=== PATIENT | male | born 1955 | race Caucasian/White ===

== ENCOUNTER 2017-01-14 01:47 | Inpatient (IN) | payer OTHER ==
[2017-01-14 02:40] LABS: Basophils # (A) 0.1 k/uL (0-0.2); Basophils % (A) 1 %; CH 30.2; CHCM 32.1; Eosinophils # (A) 0.4 k/uL (0-0.7); Eosinophils % (A) 4 %; HCT 44.4 % (39.0-53.0); HDW 2.13; HGB 14.1 gm/dL (13.0-17.5); Luc # (Auto) 0.25; Luc % (Auto) 3; Lymphocytes # (A) 1.6 k/uL (1.0-4.8); Lymphocytes % (A) 18 %; MCH 30.1 pg (25.0-35.0); MCHC 31.8 g/dL (31.0-37.0); MCV 94.6 fL (80.0-100.0); Mean Platelet Volume 7.9; Monocytes # (A) 0.6 k/uL (0-1.0); Monocytes % (A) 7 %; Neutrophils # (A) 6.1 k/uL (1.3-7.7); Neutrophils % (A) 68 %; RDW 14.7 % (11.5-15.5); WBC 8.9 k/uL (3.8-10.6); WBC (Perox) 7.98
[2017-01-14 03:01] LABS: Calcium 9.7 mg/dL (8.4-10.2); Potassium 4.8 mmol/L (3.5-5.1); Total Bilirubin 0.5 mg/dL (0.2-1.3); Total Protein 7.6 g/dL (6.3-8.2)
[2017-01-14 03:12] LABS: INR 1.1 (<1.1); Partial Thromboplastin Time 25.6 sec (22.0-30.0); Prothrombin Time 11.2 sec (9.0-12.0)
--- NOTE | 2017-01-14 03:29 | ED ---
Altered Mental Status HPI - General Chief Complaint: Altered Mental Status Stated Complaint: Altered Mental Status Time Seen by Provider: 01/14/17 01:59 Source: patient Mode of arrival: EMS Limitations: no limitations - History of Present Illness Initial Comments: This patient is a 61-year-old man brought in to have an evaluation after he seemed somewhat disoriented. The patient had reportedly locked himself out of his vehicle tonight. He states that he had tried to go to the bank, states she was going to buy something similar to bit coins. The patient seems to believe that he went there around 1 in the afternoon when he was really around 1 AM. He stated that he did this because it seemed somewhat was stealing his money from him. He patient is denying any physical complaints. MD Complaint: confusion -: unknown Severity: moderate Associated Symptoms: denies other symptoms - Related Data Home Medications Medication Instructions Recorded Confirmed Acetaminophen Tab [Tylenol] 1,000 mg PO Q6HR PRN 02/23/15 01/14/17 Multivitamin [Men's Multi-Vitamin] 1 each PO DAILY 02/23/15 01/14/17 Previous Rx's Medication Instructions Recorded Aspirin 81 mg PO DAILY chew 02/27/15 INSULIN LISPRO (humaLOG) [humaLOG 6 unit SQ AC-TID #1 vial 02/27/15 (formulary)] Insulin Glargine [Lantus] 28 unit SQ HS #1 vial 02/27/15 Rivaroxaban [Xarelto] 15 mg PO BID-W/MEALS tab 02/27/15 Allergies Allergy/AdvReac Type Severity Reaction Status Date / Time No Known Allergies Allergy Verified 01/14/17 02:10 Review of Systems ROS Statement: Those systems with pertinent positive or pertinent negative responses have been documented in the HPI. ROS Other: All systems not noted in ROS Statement are negative. Constitutional: Denies: fever, chills Eyes: Denies: vision change Respiratory: Denies: cough, dyspnea Cardiovascular: Denies: chest pain, palpitations, dyspnea on exertion Gastrointestinal: Denies: abdominal pain, vomiting, diarrhea Genitourinary: Denies: dysuria, hematuria Musculoskeletal: Denies: back pain Skin: Denies: rash Neurological: Reports: confusion. Denies: headache, weakness, numbness Psychiatric: Denies: auditory hallucinations, visual hallucinations, homicidal thoughts, suicidal thoughts Past Medical History Past Medical History: CVA/TIA, Diabetes Mellitus Additional Past Medical History / Comment(s): pt states possible stroke/tia in september 2013 History of Any Multi-Drug Resistant Organisms: None Reported Past Surgical History: Orthopedic Surgery Additional Past Surgical History / Comment(s): RT KNEE TORN LIGAMENT REPAIR Past Anesthesia/Blood Transfusion Reactions: No Reported Reaction Past Psychological History: No Psychological Hx Reported Smoking Status: Former smoker Past Alcohol Use History: Rare Past Drug Use History: None Reported - Past Family History Father Family Medical History: Unable to Obtain Mother Family Medical History: Unable to Obtain General Exam Limitations: no limitations General appearance: alert, in no apparent distress Head exam: Present: atraumatic, normocephalic Eye exam: Present: normal appearance. Absent: scleral icterus, conjunctival injection Respiratory exam: Present: normal lung sounds bilaterally. Absent: respiratory distress, wheezes, rales, rhonchi, stridor Cardiovascular Exam: Present: regular rate, normal rhythm, normal heart sounds. Absent: systolic murmur, diastolic murmur, rubs, gallop GI/Abdominal exam: Present: soft. Absent: distended, tenderness, guarding, rebound, mass Extremities exam: Present: normal inspection, normal capillary refill. Absent: pedal edema, calf tenderness Back exam: Present: normal inspection. Absent: CVA tenderness (R), CVA tenderness (L) Neurological exam: Present: alert, CN II-XII intact. Absent: oriented X3 ( Patient is disoriented to date), motor sensory deficit Psychiatric exam: Present: normal mood. Absent: agitated, homicidal ideation, suicidal ideation Skin exam: Present: warm, dry, intact, normal color. Absent: rash Course Vital Signs 01/14/17 01/14/17 01/14/17 01:55 02:55 03:55 Temperature 96.9 F L Pulse Rate 77 66 64 Respiratory 16 16 20 Rate Blood Pressure 124/84 111/73 114/73 O2 Sat by Pulse 97 97 97 Oximetry 01/14/17 01/14/17 04:55 05:45 Temperature Pulse Rate 60 59 L Respiratory 16 18 Rate Blood Pressure 121/74 111/68 O2 Sat by Pulse 96 99 Oximetry Medical Decision Making - Medical Decision Making Patient's 61-year-old man who does seem somewhat disoriented. He is found to have a degree of renal failure, with the last lab tests being approximately 2 years ago but normal then. He also appears to be having some possible dementia versus delirium. Case discussed with Dr. Cates who is covering for Dr. Davis and will admit. Patient to have nephrology consultation as well as psychiatry. - Lab Data Result diagrams: 01/14/17 01:06 01/14/17 01:06 Lab Results 01/14/17 01/14/17 01/14/17 Range/Units 01:06 01:06 01:06 WBC 8.9 (3.8-10.6) k/uL RBC 4.70 (4.30-5.90) m/uL Hgb 14.1 (13.0-17.5) gm/dL Hct 44.4 (39.0-53.0) % MCV 94.6 (80.0-100.0) fL MCH 30.1 (25.0-35.0) pg MCHC 31.8 (31.0-37.0) g/dL RDW 14.7 (11.5-15.5) % Plt Count 224 (150-450) k/uL Neutrophils % 68 % Lymphocytes % 18 % Monocytes % 7 % Eosinophils % 4 % Basophils % 1 % Neutrophils # 6.1 (1.3-7.7) k/uL Lymphocytes # 1.6 (1.0-4.8) k/uL Monocytes # 0.6 (0-1.0) k/uL Eosinophils # 0.4 (0-0.7) k/uL Basophils # 0.1 (0-0.2) k/uL PT 11.2 (9.0-12.0) sec INR 1.1 (<1.1) APTT 25.6 (22.0-30.0) sec Sodium 144 (137-145) mmol/L Potassium 4.8 (3.5-5.1) mmol/L Chloride 107 (98-107) mmol/L Carbon Dioxide 19 L (22-30) mmol/L Anion Gap 18 mmol/L BUN 48 H (9-20) mg/dL Creatinine 3.00 H (0.66-1.25) mg/dL Est GFR (MDRD) Af Amer 26 (>60 ml/min/1.73 sqM) Est GFR (MDRD) Non-Af 21 (>60 ml/min/1.73 sqM) Glucose 103 H (74-99) mg/dL Plasma Lactic Acid Brandan (0.7-2.0) mmol/L Calcium 9.7 (8.4-10.2) mg/dL Total Bilirubin 0.5 (0.2-1.3) mg/dL AST 22 (17-59) U/L ALT 25 (21-72) U/L Alkaline Phosphatase 89 (38-126) U/L Ammonia (<30) umol/L Troponin I (0.000-0.034) ng/mL Total Protein 7.6 (6.3-8.2) g/dL Albumin 4.6 (3.5-5.0) g/dL 01/14/17 01/14/17 Range/Units 01:06 01:06 WBC (3.8-10.6) k/uL RBC (4.30-5.90) m/uL Hgb (13.0-17.5) gm/dL Hct (39.0-53.0) % MCV (80.0-100.0) fL MCH (25.0-35.0) pg MCHC (31.0-37.0) g/dL RDW (11.5-15.5) % Plt Count (150-450) k/uL Neutrophils % % Lymphocytes % % Monocytes % % Eosinophils % % Basophils % % Neutrophils # (1.3-7.7) k/uL Lymphocytes # (1.0-4.8) k/uL Monocytes # (0-1.0) k/uL Eosinophils # (0-0.7) k/uL Basophils # (0-0.2) k/uL PT (9.0-12.0) sec INR (<1.1) APTT (22.0-30.0) sec Sodium (137-145) mmol/L Potassium (3.5-5.1) mmol/L Chloride (98-107) mmol/L Carbon Dioxide (22-30) mmol/L Anion Gap mmol/L BUN (9-20) mg/dL Creatinine (0.66-1.25) mg/dL Est GFR (MDRD) Af Amer (>60 ml/min/1.73 sqM) Est GFR (MDRD) Non-Af (>60 ml/min/1.73 sqM) Glucose (74-99) mg/dL Plasma Lactic Acid Brandan 1.4 (0.7-2.0) mmol/L Calcium (8.4-10.2) mg/dL Total Bilirubin (0.2-1.3) mg/dL AST (17-59) U/L ALT (21-72) U/L Alkaline Phosphatase (38-126) U/L Ammonia 17 (<30) umol/L Troponin I <0.012 (0.000-0.034) ng/mL Total Protein (6.3-8.2) g/dL Albumin (3.5-5.0) g/dL - EKG Data -: EKG Interpreted by Oh EKG shows normal: sinus rhythm, axis (Normal), intervals (Normal), QRS complexes (Normal), ST-T waves (Normal) Rate: normal (Rate 74 bpm) Interpretation: normal EKG Disposition Clinical Impression: Acute renal failure, Altered mental status Disposition: ADMITTED IP TO THIS HOSP Condition: Poor Referrals: Veto Davis MD [Primary Care Provider] - 1-2 days
--- NOTE | 2017-01-14 03:47 | XR ---
EXAM: XR Chest, 1 View CLINICAL HISTORY: Reason: altered mental status TECHNIQUE: Frontal view of the chest. COMPARISON: Chest radiography 02/23/15 FINDINGS: Lungs: Unremarkable. No consolidation. Pleural space: Unremarkable. No pneumothorax. Heart: Unremarkable. No cardiomegaly. Mediastinum: Unremarkable. Bones/joints: Unremarkable. IMPRESSION: Normal chest x-ray.
--- NOTE | 2017-01-14 03:53 | CT ---
EXAM: CT Head Without Intravenous Contrast CLINICAL HISTORY: Reason: altered mental status TECHNIQUE: Axial computed tomography images of the head/brain without intravenous contrast. Coronal and sagittal reformats submitted. CTDI is 60.30 mGy and DLP is 1253.30 mGy-cm. This CT exam was performed using one or more of the following dose reduction techniques: automated exposure control, adjustment of the mA and/or kV according to patient size, and/or use of iterative reconstruction technique. COMPARISON: No relevant prior studies available. FINDINGS: Brain: Diffuse parenchymal atrophy. No hemorrhage. No significant white matter disease. No edema. Ventricles: No midline shift or ventriculomegaly. Bones/joints: Unremarkable. No acute fracture. Soft tissues: Unremarkable. Sinuses: Unremarkable as visualized. No acute sinusitis. Mastoid air cells: Unremarkable as visualized. No mastoid effusion. IMPRESSION: No acute findings.
[2017-01-14] MEDS ORDERED: SODIUM CHLORIDE 0.9% 1,000 ML IV ONE (05:44)
[2017-01-14] MEDS ORDERED: NALOXONE 0.4 MG/ML 1 ML VIAL IV PRN (05:59)
[2017-01-14] MEDS ORDERED: ACETAMINOPHEN TAB 325 MG TAB PO PRN (05:59)
[2017-01-14] MEDS: SODIUM CHLORIDE 0.9% 1,000 ML IV SCH ×2 (06:15→18:07)
[2017-01-14 07:19] LABS: Glucose,Whole Blood 127 mg/dL (75-99)
[2017-01-14] MEDS: INSULIN LISPRO (humaLOG) 300 UNIT/3 ML VIAL SQ SCH ×4 (07:40→21:39)
[2017-01-14 09:30] VITALS: BMI 26.7
[2017-01-14] MEDS: RIVAROXABAN 15 MG TAB PO SCH ×2 (09:39→18:07)
[2017-01-14] MEDS: ASPIRIN 81 MG CHEW PO SCH (09:39)
--- NOTE | 2017-01-14 10:28 | CONS ---
DATE OF CONSULTATION: 01/14/2017 REASON FOR CONSULTATION: Renal failure. HISTORY OF PRESENT ILLNESS: Patient is a 61-year-old male who was admitted to the hospital and he was brought in confused outside a bank parking lot. Patient is not clear about what happened. He thought he was trying to get money. He was reportedly locked out of his vehicle. He thought it was 1 p.m., but it was actually a.m. when the plant worker brought him. Patient denies any prior history of kidney diseases. His serum creatinine on admission was 3.0 mg/dL. Previous creatinine on 02/27/2015 was 1.0 mg/dL. Patient denied use of any nonsteroidal anti-inflammatory agents prior to admission. His blood pressure has been marginal. With systolic around 106 to 111 mmHg. He is currently maintained on IV fluids. Patient is voiding well. PAST MEDICAL HISTORY: Significant for diabetes, previous history of CVA/TIA. PAST SURGICAL HISTORY: Knee surgery on the right knee for torn ligament. SOCIAL HISTORY: The patient is an ex-smoker. No history of drug abuse or alcohol abuse. Medications at home included insulin, Xarelto. ALLERGIES: None. REVIEW OF SYSTEMS: As per HPI. Other systems negative. On examination, the patient is comfortable, awake. He is not in any acute distress. He appears alert, oriented x3. Blood pressure is 115/68, heart rate 54 per minute. He is afebrile. EXAMINATION OF THE HEART: S1 and S2. EXAMINATION OF THE LUNGS: Bilateral breath sounds are heard. Abdomen is soft, nontender. Examination of lower extremities shows chronic skin changes with chronic lesions noted. Discoloration noted bilaterally, areas of dry skin and possibly chronic dermatitis noted bilaterally. MANAGER SPORTS exam is grossly intact. Labs show sodium 144, potassium 4.8, BUN 48, serum creatinine 3.0. Hemoglobin 14.1 g/dL. ASSESSMENT: 1. Acute kidney injury, possibly prerenal. Continue IV fluids. Check urinalysis. Repeat labs in a.m. Avoid nephrotoxic agents. 2. Diabetes. Blood sugars not significantly elevated. It was 103. Patient is maintained on insulin. 3. Altered mentation, etiology unclear. Possible cerebrovascular accident. The CT scan was negative. Patient was not hypoglycemic at the time of admission. 4. Rule out chronic kidney disease. PLAN: Continue IV fluids. Check urinalysis. Check ultrasound of the kidneys. Repeat labs in the a.m. Recommend to discontinue Xarelto for now. I am not sure why the patient is on it.
[2017-01-14 10:54] LABS: Appearance,Urine Clear (Clear); Bilirubin,Urine Negative (Negative); Glucose,Urine (UA) Negative (Negative); Ketones,Urine Negative (Negative); Leukocyte Esterase,Urine Negative (Negative); Nitrite,Urine Negative (Negative); Protein,Urine Trace (Negative); Specific Gravity,Urine 1.009 (1.001-1.035); UA Billing (MACRO vs. MICRO) CHEM; Urobilinogen,Urine <2.0 mg/dL (<2.0)
--- NOTE | 2017-01-14 12:19 | US ---
EXAMINATION TYPE: US kidneys/renal and bladder DATE OF EXAM: 01/14/2017 COMPARISON: NONE CLINICAL HISTORY: renal failure; diabetic EXAM MEASUREMENTS: Right Kidney: 13.5 x 5.8 x 5.7 cm Left Kidney: 12.9 x 5.3 x 5.6 cm Post Void Residual Volume: not assessed on inpatient Right Kidney: No hydronephrosis or masses seen Left Kidney: mild hydronephrosis Bladder: wnl Bilateral Jets seen: No, only left ureteral jet was seen after 3 minute observation IMPRESSION: There appears to be mild left hydronephrosis with no definite renal calculus.
[2017-01-14 12:35] LABS: Glucose,Whole Blood 82 mg/dL (75-99)
[2017-01-14] MEDS: MULTIVITAMINS, THERA 1 EACH TAB PO SCH (12:44)
--- NOTE | 2017-01-14 16:58 | HP ---
DATE OF ADMISSION: I am covering for Dr. Veto Davis. Jaron Hardwick is a 61-year-old male who was brought in by railroad car letterer department as he was found near his car and was somewhat confused. He had locked himself out of his car and subsequently was brought into the ED. His past medical history is positive for diabetes mellitus, previous CVA or TIA in September 2013, history of right knee torn ligament. FAMILY HISTORY: Both his parents. apparently of natural causes. SOCIAL HISTORY: Patient used to drink alcohol, but quit drinking about a month ago. He used to smoke but quit 4 years ago. Medications prior to admission were: 1. Xarelto. 2. Insulin glargine. 3. Insulin lispro. 4. Multivitamin. 5. Acetaminophen. REVIEW OF SYSTEMS: Noncontributory. On physical examination, blood pressure is 115/68, respiratory rate 18, pulse rate of 54, temperature 97, O2 sat on room air is 99%. HEENT is unremarkable. Mucous membranes are dry. Chest is clear. Cardiovascular system reveals an S1, S2. Abdomen is soft. There is no pedal edema. White count is 8.9, hemoglobin 14.1. Sodium 144, potassium 4.8, chloride 107, bicarb 19, BUN of 48, creatinine of 3. Hemoglobin A1c of 7. Glucose of 154. Urine protein is trace. IMPRESSION AT THIS TIME: 1. Metabolic encephalopathy. 2. Acute renal failure in part due to prerenal azotemia. 3. Diabetes mellitus. 4. Previous cerebrovascular accident and transient ischemic attack. At this point in time, would aggressively rehydrate the patient. Have nephrology further evaluate the patient. Keep him on insulin sliding scale and his home medications. Advance his diet as tolerated. His prognosis at this time is guarded.
[2017-01-14 17:24] LABS: Glucose,Whole Blood 90 mg/dL (75-99)
[2017-01-14 21:37] LABS: Glucose,Whole Blood 148 mg/dL (75-99)
[2017-01-14] MEDS: FAMOTIDINE 20 MG TAB PO SCH (21:38)
[2017-01-15] MEDS: SODIUM CHLORIDE 0.9% 1,000 ML IV SCH ×2 (06:02→12:46)
[2017-01-15 07:42] LABS: Glucose,Whole Blood 86 mg/dL (75-99)
[2017-01-15] MEDS: FAMOTIDINE 20 MG TAB PO SCH ×2 (07:51→21:17)
[2017-01-15] MEDS: RIVAROXABAN 15 MG TAB PO SCH ×2 (07:52→17:31)
[2017-01-15] MEDS: ASPIRIN 81 MG CHEW PO SCH (07:52)
[2017-01-15] MEDS: INSULIN LISPRO (humaLOG) 300 UNIT/3 ML VIAL SQ SCH ×4 (07:52→21:11)
[2017-01-15 11:40] LABS: Anion Gap 9 mmol/L; Blood Urea Nitrogen 24 mg/dL (9-20); Carbon Dioxide 22 mmol/L (22-30); Chloride 109 mmol/L (98-107); Glucose 107 mg/dL (74-99); Non-African American GFR(MDRD) >60 (>60 ml/min/1.73 sqM); Potassium 5.3 mmol/L (3.5-5.1); Sodium 140 mmol/L (137-145)
[2017-01-15 12:42] LABS: Glucose,Whole Blood 99 mg/dL (75-99)
[2017-01-15] MEDS: MULTIVITAMINS, THERA 1 EACH TAB PO SCH (12:46)
--- NOTE | 2017-01-15 15:36 | PN ---
Patient is seen for follow-up for acute kidney injury. He was admitted to the hospital with some degree of confusion and altered mentation. Serum creatinine was at 3.0 on initial admission. He is maintained on IV hydration and his creatinine has decreased to 1.0 now. Patient continues to have good urine output. On examination today, blood pressure is 125/72, heart rate 55 per minute. He is afebrile. Examination shows patient is euvolemic, with no evidence of significant edema in his lower extremities. He does have chronic skin changes in his legs with chronic rash. PROCESS LINE OPERATOR exam is grossly intact. Labs show sodium 140, potassium 5.3, chloride 109, BUN 24, serum creatinine 1.0. ASSESSMENT: 1. Acute kidney injury, most likely prerenal, currently significantly improved with IV hydration. 2. Mild hyperkalemia noted. We will repeat labs tomorrow. Currently patient is maintained on fluids and he has good urine output. May need to check a bladder scan to ensure adequate bladder emptying given the mild hyperkalemia. 3. Altered mentation on initial admission seems to have improved. PLAN: Continue with IV fluids. Encourage increased oral intake. Repeat labs in a.m. Check post void residual.
[2017-01-15 17:35] LABS: Glucose,Whole Blood 109 mg/dL (75-99)
--- NOTE | 2017-01-15 20:45 | PN ---
DATE OF SERVICE: 01/15/2017 He is starting to make urine, which is somewhat dilute. He feels better overall. On physical examination, his blood pressure 125/72, respiratory rate 19, pulse rate of 55, temperature 96.9, O2 sat on room air is 99%. HEENT is unremarkable. Chest is clear. Cardiovascular system reveals an S1, S2. Abdomen is soft. There is no edema. Sodium is 140, potassium 5.3, chloride 109, bicarb 22. BUN is 24 and creatinine of 1. IMPRESSION: 1. Acute renal failure in part due to prerenal azotemia. 2. Metabolic encephalopathy. 3. Diabetes mellitus. 4. Previous cerebrovascular accident with transient ischemic attack. At this point in time, continue hydration, increase activity level, keep him on insulin. Discharge planning for tomorrow. He may need social media designer to evaluate him as well.
[2017-01-15 21:08] LABS: Glucose,Whole Blood 116 mg/dL (75-99)
[2017-01-16] MEDS: SODIUM CHLORIDE 0.9% 1,000 ML IV SCH ×3 (00:31→15:37)
[2017-01-16 07:21] LABS: Glucose,Whole Blood 103 mg/dL (75-99)
[2017-01-16] MEDS: INSULIN LISPRO (humaLOG) 300 UNIT/3 ML VIAL SQ SCH ×4 (07:56→21:32)
[2017-01-16] MEDS: ASPIRIN 81 MG CHEW PO SCH (07:58)
[2017-01-16] MEDS: FAMOTIDINE 20 MG TAB PO SCH ×2 (07:58→21:32)
[2017-01-16] MEDS: MULTIVITAMINS, THERA 1 EACH TAB PO SCH (07:58)
[2017-01-16] MEDS: RIVAROXABAN 15 MG TAB PO SCH ×2 (07:58→15:37)
--- NOTE | 2017-01-16 08:45 | CONS ---
DATE OF CONSULTATION: 01/15/2017 PURPOSE FOR CONSULTATION: Evaluate for mental status change. HISTORY OF PRESENTING ILLNESS: The patient is a 61-year-old male. He was admitted to the medical floor after having been brought to the hospital by the skeet operator's department. He was found at night near his car. He was somewhat confused. He had locked himself out of his car. He apparently was at a bank at 1:00 in the morning when in fact he thought it was 1:00 in the afternoon. When I interviewed the patient, he stated that he has not had a history of any significant past psychiatric or mental health issues. He does say that he believes he has early dementia. He said that his memory has been slipping. He notes that both his parents had dementia. He says that because of his awareness of this he has been cautious in regards to focusing on things he can do to keep himself as oriented as possible. He acknowledges that he can be forgetful of names and dates. According to the nurse, he was not remembering the date though otherwise was oriented to his circumstances and the hospital situation. When I interviewed the patient, he was able to give me the day of the week and date. An issue that he struggles with is that he says he is completely convinced that his sister has been taking money from him. He says that he receives social security assisted money. It apparently is deposited in a bank. He believes that his sister has had access to accounts and has been taking money out of the accounts. He had been living with his sister, though one month ago he moved out because of these concerns about money. In the last month he has been living out of his car or in local motels. He had gone to the bank at 1:00 with the expectation that he was to meet his sister there and they would be going to the bank to clarify issues relating to the money. He fully acknowledges that he had mixed up day and night in this regard. He says that he is not on any psychotropic medications and has not had significant problems in recent times during the past with anxiety, depression or thought disorder. He feels he gets along fairly well on a day-to-day basis in spite of some of the memory deficits he has. One example of the memory deficit is that he could not remember the name of the bank though he could describe where it was and some aspects about it. When I asked him who the president was, he said he could not remember the President's name. He said he did not vote for the president, but "I voted for the other amairani". He knew that he was in the hospital in [place]. He knew the circumstances of coming to the hospital. He was able to describe a plan that he had relating to the money issues which mainly was to go to the bank and have printouts made of deposits and withdrawals of his money. He said he has previously notified the bank that there should not be withdrawals made except to him, though he believes the [employer] has allowed some withdrawals to his sister unbeknownst to him. When he was admitted he was found to have an elevated creatinine at 3 and currently is being aggressively hydrated as part of his immediate treatment The patient reports that in general he has been sleeping fairly well at night. Even the nights that he needs to sleep in his car. He was somewhat vague about his daytime activities though says he gets himself around the community. He says the dilemma he has at this moment is that he does not know what has happened to his car. 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 He did this for a number of years. 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 He does not use alcohol, smoke marijuana or use other habit-forming substances. He said that in his distant past he did drink alcohol and smoke some marijuana but not to abuse. He has not been treated in the past for any mental health issues. MENTAL STATUS: When I interviewed the patient, he gave good eye contact. Psychomotor activity and speech were normal. His thoughts were clear. He was spontaneous and interactive. He was quite responsive in the interview process. He talked with a strong clear voice. It was noteworthy that he had some memory issues, though on the other hand also was well aware of his circumstances and current situation. His affect was in a reasonable range. His mood was fairly even. He had a pleasant manner. He did not appear to be significantly distressed. ASSESSMENT: At this point, it is not clear that the patient had a primary psychiatric disorder. He does appear to have memory issues and may in fact have mild dementia. He does have a plan to address his concerns about the money issues. He says he would be willing to have a family meeting with one sister who he sees as supportive, though it would not be with the sister that he has accused of stealing money. He does have some awareness that there may be issues with his getting his car back especially if the police found him confused as there may be some requirements for him to have a vibratory pile driver's license assessment. The patient is willing to work with the medical social worker in regards to possible living arrangements. This may be the most immediate intervention needed. I will continue to follow.
--- NOTE | 2017-01-16 10:44 | P.PN ---
Subjective Patient is seen in follow-up for acute kidney injury. Creatinine was 3 on admission and is down to 1 today. He is currently maintained on normal saline at 100 mL an hour. Oral intake has improved. Denies chest pain or shortness of breath. No vomiting or diarrhea. No active complaints at this time. Vital signs are stable. General: The patient appeared well nourished and normally developed. HEENT: Head exam is unremarkable. Neck is without jugular venous distension. LUNGS: Lungs are clear to auscultation and percussion. Breath sounds decreased. HEART: Rate and Rhythm are regular. First and second heart sounds normal. No murmurs, rubs or gallops. ABDOMEN: Abdominal exam reveals normal bowel sounds. Non-tender and non- distended. No evidence of peritonitis. EXTREMITITES: No clubbing, cyanosis, or edema. Objective - Vital Signs Vital signs: Vital Signs Temp 98.4 F 01/16/17 07:00 Pulse 59 L 01/16/17 07:00 Resp 16 01/16/17 07:00 BP 127/71 01/16/17 07:00 Pulse Ox 98 01/16/17 07:00 Intake & Output 01/15/17 01/16/17 01/16/17 18:59 06:59 18:59 Other: # Voids 2 2 - Labs CBC & Chem 7: 01/14/17 01:06 01/15/17 11:14 Labs: Abnormal Lab Results - Last 24 Hours (Table) 01/15/17 01/15/17 01/15/17 Range/Units 11:14 17:29 21:06 Potassium 5.3 H (3.5-5.1) mmol/L Chloride 109 H (98-107) mmol/L BUN 24 H (9-20) mg/dL Glucose 107 H (74-99) mg/dL POC Glucose (mg/dL) 109 H 116 H (75-99) mg/dL 01/16/17 Range/Units 07:15 Potassium (3.5-5.1) mmol/L Chloride (98-107) mmol/L BUN (9-20) mg/dL Glucose (74-99) mg/dL POC Glucose (mg/dL) 103 H (75-99) mg/dL Assessment and Plan Plan: Assessment: #1. Nonoliguric acute kidney injury mostly prerenal in nature. Improving with IV hydration. Creatinine down to 1.0 as of yesterday. #2. Mild hyperkalemia related to acute kidney injury. No evidence of urinary retention. #3. Altered mental status on admission. Now resolved. Plan: I will decrease rate of IV fluids to 50 mL an hour. Check potassium level today. Low potassium diet. Potential discharge today.
[2017-01-16 11:38] LABS: ALT 19 U/L (21-72); AST 16 U/L (17-59); Alkaline Phosphatase 67 U/L (38-126); Anion Gap 10 mmol/L; Blood Urea Nitrogen 15 mg/dL (9-20); Calcium 9.1 mg/dL (8.4-10.2); Carbon Dioxide 24 mmol/L (22-30); Chloride 106 mmol/L (98-107); Glucose 110 mg/dL (74-99); Non-African American GFR(MDRD) >60 (>60 ml/min/1.73 sqM); Potassium 4.7 mmol/L (3.5-5.1); Sodium 140 mmol/L (137-145); Total Bilirubin 0.4 mg/dL (0.2-1.3); Total Protein 6.5 g/dL (6.3-8.2)
[2017-01-16 12:12] LABS: Glucose,Whole Blood 99 mg/dL (75-99)
--- NOTE | 2017-01-16 12:13 | P.PN ---
Subjective 61-year-old male being seen and examined this morning 7th grade social studies teacher and telephonic case manager are pursuing the discharge plan. Patient is pleasant but has poor insight into health care. Patient states he has not seen Dr. Davis in several years. Patient states he's on a blood thinner Xarelto but does not know why he takes it when he remembers also patient states his diabetic takes Lantus insulin when he needs it . Nursing did contact the patient's internal medicine physician office to require med list to be faxed over to look at patient was able to provide the name states he sees dr spencer patient was seen in the emergency room Hospital course January 14 patient presented to the emergency room after the medical and health services manager department found the patient at night near his car patient was confused he locked himself out of his car. Patient went to the bank at 1:00 in the morning when he really thought it was 1 in the afternoon. Patient gives no history of psychiatric or mental health issues. Patient states he's concerned as he has early dementia he's concerned his memory seems to be slipping. He states both parents had dementia. Patient was concerned emergency room felt that his sister was trying still money from him. When asked where patient lived was not able to really recall. Also in the emergency room creatinine was elevated to 3 patient was treated admitted for acute renal failure nephrology consultation obtained patient was started on IV fluid for rehydration a psychiatric and nephrology consultation requested telephonic case manager and 7th grade social studies teacher involved in the discharge plan Objective - Vital Signs Vital signs: Vital Signs Temp 98.4 F 01/16/17 07:00 Pulse 59 L 01/16/17 07:00 Resp 16 01/16/17 07:00 BP 127/71 01/16/17 07:00 Pulse Ox 98 01/16/17 07:00 Intake & Output 01/15/17 01/16/17 01/16/17 18:59 06:59 18:59 Other: # Voids 2 2 - Exam GENERAL APPEARANCE: 61-year-old male patient is alert, oriented to self no adequate recall of event or place can identify the month but not the year, in no acute distress. Pleasant cooperative VITAL SIGNS: Reviewed HEENT: Head is normocephalic and atraumatic. Pupils are equal and reactive. The nares are patent. Oropharynx is clear without lesions. NECK: Supple without lymphadenopathy. Traches midline. HEART: S1, S2. Regular rate and rhythm. No murmur noted denying chest pain LUNGS: No crackles or wheezes are heard. Adequate air movement bilaterally ABDOMEN: Soft, nontender, nondistended with good bowel sounds. No peritoneal signs. No palpable organomegaly or masses. EXTREMITIES: Normal skin color and turgor. No cyanosis, rash, ulceration, clubbing or edema. Radial pedal pulses are 2/4 bilaterally. . - Labs CBC & Chem 7: 01/14/17 01:06 01/16/17 10:58 Labs: Abnormal Lab Results - Last 24 Hours (Table) 01/15/17 01/15/17 01/16/17 Range/Units 17:29 21:06 07:15 Glucose (74-99) mg/dL POC Glucose (mg/dL) 109 H 116 H 103 H (75-99) mg/dL AST (17-59) U/L ALT (21-72) U/L 01/16/17 Range/Units 10:58 Glucose 110 H (74-99) mg/dL POC Glucose (mg/dL) (75-99) mg/dL AST 16 L (17-59) U/L ALT 19 L (21-72) U/L Assessment and Plan Plan: Impression Present on admission acute encephalopathy unclear etiology Present on admission acute kidney injury suspect due to poor oral intake and clinical dehydration Present on admission hyperkalemia Present on admission cognitive impairment suspect due to mild dementia with no behavior disturbance Positive family history parents dementia Type 2 diabetes insulin requiring with hypoglycemic episodes A previous history of a CVA TIA no deficits Plan rodent control worker to pursue legal guardianship Obtain medical record from patient's primary care provider Dr. spencer office Repeat labs in the a.m. DVT and GI prophylaxis IV fluid for hydration Discharge plan and progress benefit from assisted living controlled environment The above dictated assessment and findings were discussed with dr heath covering for dr davis . Impression and the plan of care have been dictated as directed. Loulou Mccrary nurse practitioner acting as a scribe for dr heath covering for dr davis.
[2017-01-16 13:02] LABS: Cholesterol 152 mg/dL (<200); HDL Cholesterol 34 mg/dL (40-60); Triglycerides 208 mg/dL (<150)
[2017-01-16 17:17] LABS: Glucose,Whole Blood 99 mg/dL (75-99)
--- NOTE | 2017-01-16 18:12 | CONS ---
DATE OF CONSULTATION: 01/16/2017 PURPOSE FOR CONSULTATION: Evaluate for mental status change. INTERVAL HISTORY: Patient has been doing fairly well. In regards to any psychiatric issues the patient has been stable. Cognition ramon to patient appears to be doing the same. Problems are with difficulty with short-term memory. Overall he seems to function fairly well in spite of some of his deficits. It is noted that it was reported earlier in the day that he was declining to have his sister's involved and there was consideration for approaching a public guardian. When I saw the patient today he indicated that he had signed a release for his sister's to be involved. He has a plan to return to living with his sister that he had expressed concern about. He says he also was made aware that his truck does not have current tabs for his license plate, which he is now aware of and understands that he will have to deal with that. He does have a plan of connecting with the bank and was hopeful to work on some of that this afternoon by telephone. He says that he understands the best situation at this point is to coordinate with his sisters as far as discharge planning. Apparently there is a home that he can live in independently separate from living within his sister's home. He would be responsible for bills for that location. He slept fairly well last night. His mood has been even. He seems to have fairly good awareness of his immediate situation and what things he needs to deal with as far as discharge planning. At this point, my only recommendation is for social work to coordinate with his sisters to address appropriate discharge issues.
[2017-01-16 21:08] LABS: Glucose,Whole Blood 181 mg/dL (75-99)
[2017-01-17 07:15] LABS: Glucose,Whole Blood 112 mg/dL (75-99)
[2017-01-17 07:24] VITALS: BP 126/72; PULSE 60; RESP 20; TEMP 97.3
[2017-01-17 07:42] LABS: Glucose,Whole Blood 106 mg/dL (75-99)
[2017-01-17] MEDS: ASPIRIN 81 MG CHEW PO SCH (07:53)
[2017-01-17] MEDS: INSULIN LISPRO (humaLOG) 300 UNIT/3 ML VIAL SQ SCH ×2 (07:53→13:46)
[2017-01-17] MEDS: RIVAROXABAN 15 MG TAB PO SCH (07:54)
[2017-01-17] MEDS: FAMOTIDINE 20 MG TAB PO SCH (07:54)
[2017-01-17 09:06] LABS: Anion Gap 10 mmol/L; Blood Urea Nitrogen 12 mg/dL (9-20); Carbon Dioxide 25 mmol/L (22-30); Chloride 107 mmol/L (98-107); Glucose 115 mg/dL (74-99); Non-African American GFR(MDRD) >60 (>60 ml/min/1.73 sqM); Potassium 4.7 mmol/L (3.5-5.1); Sodium 142 mmol/L (137-145)
--- NOTE | 2017-01-17 10:04 | P.PN ---
Subjective Patient is seen in follow-up for acute kidney injury. Creatinine was 3 on admission and is down to 0.8today. He is currently maintained on normal saline at 50 mL an hour. Oral intake has improved. Denies chest pain or shortness of breath. No vomiting or diarrhea. No active complaints at this time. Vital signs are stable. General: The patient appeared well nourished and normally developed. HEENT: Head exam is unremarkable. Neck is without jugular venous distension. LUNGS: Lungs are clear to auscultation and percussion. Breath sounds decreased. HEART: Rate and Rhythm are regular. First and second heart sounds normal. No murmurs, rubs or gallops. ABDOMEN: Abdominal exam reveals normal bowel sounds. Non-tender and non- distended. No evidence of peritonitis. EXTREMITITES: No clubbing, cyanosis, or edema. Objective - Vital Signs Vital signs: Vital Signs Temp 97.3 F L 01/17/17 07:00 Pulse 60 01/17/17 07:00 Resp 20 01/17/17 08:00 BP 126/72 01/17/17 07:00 Pulse Ox 98 01/17/17 07:00 Intake & Output 01/16/17 01/17/17 01/17/17 18:59 06:59 18:59 Other: # Voids 3 1 - Labs CBC & Chem 7: 01/14/17 01:06 01/17/17 07:56 Labs: Abnormal Lab Results - Last 24 Hours (Table) 01/14/17 01/16/17 01/16/17 Range/Units 01:47 10:58 10:58 Glucose 110 H (74-99) mg/dL POC Glucose (mg/dL) 106 H (75-99) mg/dL AST 16 L (17-59) U/L ALT 19 L (21-72) U/L Triglycerides 208 H (<150) mg/dL HDL Cholesterol 34 L (40-60) mg/dL 01/16/17 01/17/17 01/17/17 Range/Units 21:02 07:12 07:56 Glucose 115 H (74-99) mg/dL POC Glucose (mg/dL) 181 H 112 H (75-99) mg/dL AST (17-59) U/L ALT (21-72) U/L Triglycerides (<150) mg/dL HDL Cholesterol (40-60) mg/dL Assessment and Plan Plan: Assessment: #1. Nonoliguric acute kidney injury mostly prerenal in nature. Improved with IV hydration. GFR at baseline. #2. Mild hyperkalemia related to acute kidney injury. No evidence of urinary retention. Resolved. #3. Altered mental status on admission. Now resolved. Plan: Hep-Lock IV fluids. Potential discharge today.
--- NOTE | 2017-01-17 10:33 | P.PN ---
Subjective 61-year-old male being seen currently sitting up in bed. The discharge plan is in progress. The social services technician is pursuing legal guardianship. Nursing staff did contact and obtain medical records from patient's primary care provider dr spencer records indicate the patient was on Xarelto for history of pulmonary emboli with DVT and a history of a CVA. Additionally the patient was on Lantus. Hemoglobin A1c was 7. Patient this morning is pleasant cooperative oriented to person and place patient states he hopes to go live with his sister when all of this gets figured out" Objective - Vital Signs Vital signs: Vital Signs Temp 97.3 F L 01/17/17 07:00 Pulse 60 01/17/17 07:00 Resp 20 01/17/17 08:00 BP 126/72 01/17/17 07:00 Pulse Ox 98 01/17/17 07:00 Intake & Output 01/16/17 01/17/17 01/17/17 18:59 06:59 18:59 Other: # Voids 3 1 - Exam GENERAL APPEARANCE: 61-year-old male, in no acute distress. Pleasant cooperative sitting up in bed talkative VITAL SIGNS: Reviewed HEENT: Head is normocephalic and atraumatic. Pupils are equal and reactive. The nares are patent. Oropharynx is clear without lesions. NECK: Supple without lymphadenopathy. Traches midline. HEART: S1, S2. Regular rate and rhythm. No murmur noted denying chest pain LUNGS: No crackles or wheezes are heard. Adequate air movement bilaterally ABDOMEN: Soft, nontender, nondistended with good bowel sounds. No peritoneal signs. No palpable organomegaly or masses. EXTREMITIES: Normal skin color and turgor. No cyanosis, rash, ulceration, clubbing or edema. Radial pedal pulses are 2/4 bilaterally. . - Labs CBC & Chem 7: 01/14/17 01:06 01/17/17 07:56 Labs: Abnormal Lab Results - Last 24 Hours (Table) 01/14/17 01/16/17 01/16/17 Range/Units 01:47 10:58 10:58 Glucose 110 H (74-99) mg/dL POC Glucose (mg/dL) 106 H (75-99) mg/dL AST 16 L (17-59) U/L ALT 19 L (21-72) U/L Triglycerides 208 H (<150) mg/dL HDL Cholesterol 34 L (40-60) mg/dL 01/16/17 01/17/17 01/17/17 Range/Units 21:02 07:12 07:56 Glucose 115 H (74-99) mg/dL POC Glucose (mg/dL) 181 H 112 H (75-99) mg/dL AST (17-59) U/L ALT (21-72) U/L Triglycerides (<150) mg/dL HDL Cholesterol (40-60) mg/dL Assessment and Plan Plan: Impression Present on admission acute encephalopathy unclear etiology Present on admission acute kidney injury suspect due to poor oral intake and clinical dehydration Present on admission hyperkalemia Present on admission cognitive impairment suspect due to mild dementia with no behavior disturbance Positive family history parents dementia Type 2 diabetes insulin requiring with hypoglycemic episodes A previous history of a CVA TIA no deficits Plan aboriginal education worker coordinator to pursue legal guardianship Obtain medical record from patient's primary care provider Dr. spencer office Repeat labs in the a.m. DVT and GI prophylaxis IV fluid for hydration Discharge plan and progress benefit from assisted living controlled environment The above dictated assessment and findings were discussed with dr heath covering for dr poe . Impression and the plan of care have been dictated as directed. Loulou Mccrary nurse practitioner acting as a scribe for dr heath covering for dr poe.
[2017-01-17] MEDS: MULTIVITAMINS, THERA 1 EACH TAB PO SCH (12:02)
[2017-01-17 12:16] LABS: Glucose,Whole Blood 111 mg/dL (75-99)
[2017-01-17] MEDS: SODIUM CHLORIDE 0.9% 1,000 ML IV SCH (14:08)
--- NOTE | 2017-01-17 14:23 | P.DS ---
Providers Date of admission: 01/14/17 05:59 Expected date of discharge: 01/17/17 Attending physician: Veto Davis Consults: 01/14/17 06:00 Consult Physician Routine Consulting Provider: Arlen Marcelino Consult Reason/Comments: acute renal failure Do you want consulting provider notified?: Yes 01/14/17 06:01 Consult Physician Routine Consulting Provider: Stanford Chavez Consult Reason/Comments: dementia vs psychosis Do you want consulting provider notified?: Yes Primary care physician: Veto Davis Hospital Course: 61-year-old male brought into the emergency room on the day of admission by the police when the police found the patient walked outside of his vehicle. Patient reports that he is trying to get to the bank to buy something was 1 in the morning patient that it was one in the afternoon. Patient also was verbalizing concerns that someone was trying to steal money from him. Patient was confused but pleasant and cooperative was admitted to the services of the attending. Psychiatric consultation was requested. Psychiatric service indicated the patient did not qualify for inpatient admission to mental health unit was probably experiencing dementia which has progressed patient was not able to adequately give any health information. Patient was last seen by Dr. Davis 2015 additionally patient was able to provide a card that had the name of his physician dr spencer patient stated that he was on a blood thinner and insulin. He did not know why. Did obtain records from his PCP Dr. Spencer indicate the patient was on Xarelto for history of a pulmonary emboli DVT and a TIA. Hemoglobin A1c was 7. The social services analyst did pursue the discharge plan the patient apparently does live with a sister. The sister was contacted the plan was for the patient to be discharged back to the sister's home which the patient would follow-up with his PCP the social services analyst updated patient's sister and the patient's sister named Pat stated that she would go to court petition for guardianship. Subsequently the patient was felt to be medically stable and appropriate proceed with a discharge to home Impression Present on admission acute metabolic encephalopathy Present on admission acute kidney injury suspect due to poor oral intake and clinical dehydration Present on admission hyperkalemia Present on admission cognitive impairment suspect due to mild dementia with no behavior disturbance Positive family history parents dementia Type 2 diabetes insulin requiring with hypoglycemic episodes A previous history of a CVA TIA no deficits The above dictated assessment and findings were discussed with dr davis . Impression and the plan of care have been dictated as directed. Loulou Mccrary nurse practitioner acting as a scribe for dr davis Patient Condition at Discharge: Poor Plan - Discharge Summary New Discharge Prescriptions: Continue Acetaminophen Tab [Tylenol] 1,000 mg PO Q6HR PRN PRN Reason: Pain Rivaroxaban [Xarelto] 15 mg PO BID-W/MEALS tab Insulin Glargine [Lantus] 26 unit SQ BID Discharge Medication List Acetaminophen Tab [Tylenol] 1,000 mg PO Q6HR PRN 02/23/15 [History] Rivaroxaban [Xarelto] 15 mg PO BID-W/MEALS tab 02/27/15 [Rx] Insulin Glargine [Lantus] 26 unit SQ BID 01/14/17 [History] Follow up Appointment(s)/Referral(s): Veto Davis MD [Primary Care Provider] - 1-2 days [facility], [NON-STAFF] - As Needed Carlos Lee MD [REFERRING] - 01/17/17 Patient Instructions/Handouts: Type 2 Diabetes in Adults (DC)
--- NOTE | 2017-01-18 16:02 | HP ---
DATE OF ADMISSION: CHIEF COMPLAINT: Altered mental status and renal failure. HISTORY OF PRESENT ILLNESS: This gentleman was admitted in my absence. He apparently was found wandering around by the police and was brought in. He does have dementia. There was no other history available, and he was worked up by my designate. He was admitted to look for various etiologies of encephalopathy. He probably does have dementia. He also may have diabetes, but this is difficult to determine from his history.
--- NOTE | 2017-01-18 16:04 | PN ---
DATE OF SERVICE: 01/17/2017 CHIEF COMPLAINT: Altered mental status and dementia. HISTORY OF PRESENT ILLNESS: This gentleman is awake and alert, but he remains confused. We are working on getting him a guardian. He has a sister who may take responsibility for him. PHYSICAL EXAMINATION: His chest is clear. The cardiac exam is normal. The abdomen is soft, nontender. IMPRESSION: 1. Mental status changes. 2. Dementia. 3. Renal failure. PLAN: He may be going home today, and if he does, he may go home under the observation or care of his sister. This will be arranged by the nurse practitioner.
== END 2017-01-17 14:56 | disposition home health service (06) | DRG 682 ==
LOC: EC 01:47 → 4MS4W 05:59
PROVIDERS: ADMIT Internal Medicine Pulmonary Disease; ATTEND Family Medicine
DX: N17.9 Acute kidney failure, unspecified (principal); G93.41 Metabolic encephalopathy; E11.649 Type 2 diabetes mellitus with hypoglycemia without coma; F03.90 Unspecified dementia, unspecified severity, without behavioral disturbance, psychotic disturbance, mood disturbance, and anxiety; E87.5 Hyperkalemia; R21 Rash and other nonspecific skin eruption; E86.0 Dehydration; Z79.4 Long term (current) use of insulin; Z79.82 Long term (current) use of aspirin; Z79.01 Long term (current) use of anticoagulants; Z87.891 Personal history of nicotine dependence
CPT/HCPCS: 36415; 70450; 71010; 76770; 80048; 80053; 80061; 80306; 81003; 82140; 83036; 83605; 84484; 85025; 85610; 85730; 93005; 96360; 99285

== ENCOUNTER 2018-02-18 21:55 | Emergency (ER) | payer OTHER ==
[2018-02-18 22:06] VITALS: TEMP 98.5
[2018-02-18 22:59] LABS: HCT 37.6 % (39.0-53.0); HGB 12.6 gm/dL (13.0-17.5); MCH 30.8 pg (25.0-35.0); MCHC 33.6 g/dL (31.0-37.0); MCV 91.7 fL (80.0-100.0); Mean Platelet Volume 7.6; Platelet Count 161 k/uL (150-450); RBC 4.09 m/uL (4.30-5.90); RDW 14.1 % (11.5-15.5); WBC 7.9 k/uL (3.8-10.6)
[2018-02-18 23:00] LABS: INR 2.2 (<1.2); Prothrombin Time 20.1 sec (9.0-12.0)
[2018-02-18 23:16] LABS: Mucus,Urine Rare /hpf; RBC,Urine >182 /hpf (0-5); WBC,Urine >182 /hpf (0-5)
[2018-02-18 23:18] LABS: Appearance,Urine Cloudy (Clear); Color,Urine Dark Red
[2018-02-19] MEDS ORDERED: CIPROFLOXACIN HCL 500 MG TAB PO STA (00:17)
--- NOTE | 2018-02-19 00:17 | ED ---
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 He denies any prostate cancer or urinary bladder tumor. Eyes any abdominal pain no frequency urgency dysuria. - Related Data Home Medications Medication Instructions Recorded Confirmed Acetaminophen Tab [Tylenol] 1,000 mg PO Q6HR PRN 02/23/15 01/14/17 Insulin Glargine [Lantus] 26 unit SQ BID 01/14/17 01/14/17 Previous Rx's Medication Instructions Recorded Rivaroxaban [Xarelto] 15 mg PO BID-W/MEALS tab 02/27/15 Ciprofloxacin HCl [Cipro] 500 mg PO Q12HR #14 tablet 02/19/18 Allergies Allergy/AdvReac Type Severity Reaction Status Date / Time No Known Allergies Allergy Verified 02/18/18 22:06 Review of Systems ROS Statement: Those systems with pertinent positive or pertinent negative responses have been documented in the HPI. ROS Other: All systems not noted in ROS Statement are negative. Past Medical History Past Medical History: CVA/TIA, Diabetes Mellitus Additional Past Medical History / Comment(s): pt states possible stroke/tia in september 2013 History of Any Multi-Drug Resistant Organisms: None Reported Past Surgical History: Orthopedic Surgery Additional Past Surgical History / Comment(s): RT KNEE TORN LIGAMENT REPAIR Past Anesthesia/Blood Transfusion Reactions: No Reported Reaction Past Psychological History: No Psychological Hx Reported Smoking Status: Former smoker Past Alcohol Use History: Rare Past Drug Use History: None Reported - Past Family History Father History Unknown: Yes Family Medical History: Unable to Obtain Mother History Unknown: Yes Family Medical History: Unable to Obtain General Exam - General Exam Comments Initial Comments: General: The patient is awake and alert, in no distress, and does not appear acutely ill. Skin: Skin is warm and dry and no rashes or lesions are noted. Eye: Pupils are equal, round and reactive to light, extra-ocular movements are intact; there is normal conjunctiva bilaterally. Ears, nose, mouth and throat: There are moist mucous membranes and no oral lesions. Neck: The neck is supple, there is no tenderness or JVD. Cardiovascular: There is a regular rate and rhythm. No murmur, rub or gallop is appreciated. Respiratory: To auscultation bilateral, no wheezing no rhonchi no distress respiratory ramon noticed Gastrointestinal: Soft, non-distended, non-tender abdomen without masses or organomegaly noted. There is no rebound or guarding present. Bowel sounds are unremarkable. Back: There is no tenderness to palpation in the midline. There is no obvious deformity. Musculoskeletal: Normal ROM, no tenderness, There is no pedal edema. There is no calf tenderness or swelling. No cords were appreciated. Neurological: CN II-XII intact, Cranial nerves III through XII are intact. There are no obvious motor or sensory deficits. Coordination appears grossly intact. Speech is normal. Psychiatric: Cooperative, appropriate mood & affect, normal judgment. Limitations: no limitations Course Vital Signs 02/18/18 22:03 Temperature 98.5 F Pulse Rate 85 Respiratory 18 Rate Blood Pressure 155/84 O2 Sat by Pulse 98 Oximetry INR today is 2.2. Sign out a few days ago was greater than 5 hemoglobin today is 12.6 hemoglobin December 2016 was 14.1 patient is given a hold his Coumadin tomorrow as well and then he cannot see his family doctor and repeat hemoglobin , patient agreed with the period I advised the patient to follow up with the urology if hematuria does not clear up in next week for the evaluation of any kidney tumor or bladder tumor or prostate cancer patient understands and agrees with that. Home on a Cipro 500 mg by mouth twice daily for next 7 days and follow-up with family doctor in one or 2 days to recheck hemoglobin Medical Decision Making - Lab Data Result diagrams: 02/18/18 22:51 Lab Results 02/18/18 02/18/18 02/18/18 Range/Units 22:51 22:51 22:56 WBC 7.9 (3.8-10.6) k/uL RBC 4.09 L (4.30-5.90) m/uL Hgb 12.6 L (13.0-17.5) gm/dL Hct 37.6 L (39.0-53.0) % MCV 91.7 (80.0-100.0) fL MCH 30.8 (25.0-35.0) pg MCHC 33.6 (31.0-37.0) g/dL RDW 14.1 (11.5-15.5) % Plt Count 161 (150-450) k/uL PT 20.1 H (9.0-12.0) sec INR 2.2 H (<1.2) Urine Color Dark Red Urine Appearance Cloudy (Clear) Urine RBC >182 H (0-5) /hpf Urine WBC >182 H (0-5) /hpf Urine Mucus Rare H (None) /hpf Disposition Clinical Impression: Hematuria, Cystitis Disposition: HOME SELF-CARE Condition: Good Instructions: Urinary Tract Infection in Men (ED) Prescriptions: Ciprofloxacin HCl [Cipro] 500 mg PO Q12HR #14 tablet Is patient prescribed a controlled substance at d/c from ED?: No Referrals: Carlos Lee MD [Primary Care Provider] - 1-2 days
[2018-02-19 00:28] VITALS: BP 129/69; PULSE 58; RESP 16
== END 2018-02-19 00:29 | disposition home or self-care (01) ==
LOC: EC 21:55 → EEVIPCON 21:55 → EC 02-19 00:29
DX: N30.91 Cystitis, unspecified with hematuria (principal); E11.9 Type 2 diabetes mellitus without complications; Z86.73 Personal history of transient ischemic attack (TIA), and cerebral infarction without residual deficits; Z87.891 Personal history of nicotine dependence; Z98.890 Other specified postprocedural states; Z79.4 Long term (current) use of insulin
CPT/HCPCS: 36415; 81001; 85027; 85610; 99283

== ENCOUNTER → 2018-04-17 | Outpatient (CLI) | payer OTHER ==
[2018-04-17 08:52] LABS: HCT 41.6 % (39.0-53.0); HGB 13.6 gm/dL (13.0-17.5); MCH 31.3 pg (25.0-35.0); MCHC 32.6 g/dL (31.0-37.0); MCV 95.9 fL (80.0-100.0); Mean Platelet Volume 7.4; Platelet Count 180 k/uL (150-450); RBC 4.34 m/uL (4.30-5.90); RDW 13.7 % (11.5-15.5); WBC 9.7 k/uL (3.8-10.6)
[2018-04-17 09:41] LABS: ALT 20 U/L (21-72); AST 22 U/L (17-59); Albumin 4.4 g/dL (3.5-5.0); Alkaline Phosphatase 60 U/L (38-126); Anion Gap 11 mmol/L; Blood Urea Nitrogen 23 mg/dL (9-20); Calcium 9.5 mg/dL (8.4-10.2); Carbon Dioxide 26 mmol/L (22-30); Chloride 105 mmol/L (98-107); Glucose 130 mg/dL (74-99); Potassium 5.1 mmol/L (3.5-5.1); Sodium 142 mmol/L (137-145); Total Bilirubin 0.5 mg/dL (0.2-1.3); Total Protein 7.1 g/dL (6.3-8.2)
[2018-04-17 09:52] LABS: T4, Free (Free Thyroxine) 0.86 ng/dL (0.78-2.19)
[2018-04-17 17:15] LABS: Vitamin D 25 Hydroxy 19.9 ng/mL (30.0-100.0)
== END | disposition home or self-care (01) ==
LOC: LABWHC1 08:08
PROVIDERS: ATTEND Physician Assistant
DX: F03.90 Unspecified dementia, unspecified severity, without behavioral disturbance, psychotic disturbance, mood disturbance, and anxiety (principal)
CPT/HCPCS: 36415; 80053; 82306; 82607; 84439; 84443; 84481; 85027

== ENCOUNTER 2018-10-18 12:32 | Emergency (ER) | payer OTHER ==
[2018-10-18 12:48] VITALS: TEMP 97.7
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
[2018-10-18 14:04] LABS: Basophils % (A) 0 %; Eosinophils # (A) 0.1 k/uL (0-0.7); Eosinophils % (A) 1 %; HGB 11.6 gm/dL (13.0-17.5); Lymphocytes # (A) 1.1 k/uL (1.0-4.8); Lymphocytes % (A) 14 %; MCH 29.8 pg (25.0-35.0); MCHC 31.3 g/dL (31.0-37.0); MCV 95.3 fL (80.0-100.0); Mean Platelet Volume 6.8; Monocytes # (A) 0.4 k/uL (0-1.0); Monocytes % (A) 5 %; Neutrophils # (A) 6.2 k/uL (1.3-7.7); Neutrophils % (A) 78 %; Platelet Count 331 k/uL (150-450); RBC 3.88 m/uL (4.30-5.90); RDW 13.9 % (11.5-15.5); WBC 7.9 k/uL (3.8-10.6)
[2018-10-18 14:23] LABS: ALT 20 U/L (21-72); AST 20 U/L (17-59); Albumin 4.1 g/dL (3.5-5.0); Alkaline Phosphatase 72 U/L (38-126); Anion Gap 10 mmol/L; Blood Urea Nitrogen 24 mg/dL (9-20); Calcium 9.6 mg/dL (8.4-10.2); Carbon Dioxide 28 mmol/L (22-30); Chloride 102 mmol/L (98-107); Glucose 131 mg/dL (74-99); Prothrombin Time 55.4 sec (9.0-12.0); Sodium 140 mmol/L (137-145); Total Bilirubin 0.5 mg/dL (0.2-1.3); Total Protein 7.1 g/dL (6.3-8.2)
[2018-10-18 14:30] LABS: INR 5.7 (<1.2)
[2018-10-18 14:39] VITALS: BP 136/75; PULSE 66; RESP 16
== END 2018-10-18 14:46 | disposition home or self-care (01) ==
LOC: EC 12:32
DX: F03.90 Unspecified dementia, unspecified severity, without behavioral disturbance, psychotic disturbance, mood disturbance, and anxiety (principal); E11.9 Type 2 diabetes mellitus without complications; Z86.73 Personal history of transient ischemic attack (TIA), and cerebral infarction without residual deficits; Z87.891 Personal history of nicotine dependence; Z98.890 Other specified postprocedural states; Z79.01 Long term (current) use of anticoagulants; Z79.84 Long term (current) use of oral hypoglycemic drugs; Z79.899 Other long term (current) drug therapy; Z91.14 Patient's other noncompliance with medication regimen
CPT/HCPCS: 36415; 80053; 85025; 85610; 85730; 93005; 99284

== ENCOUNTER 2018-10-23 12:28 | Emergency (ER) | payer OTHER ==
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
[2018-10-23 14:59] LABS: Appearance,Urine Clear (Clear); Bilirubin,Urine Negative (Negative); Blood,Urine Negative (Negative); Color,Urine Yellow; Glucose,Urine (UA) 1+ (Negative); Hyaline Casts,Urine 5 /lpf (0-2); Ketones,Urine Negative (Negative); Leukocyte Esterase,Urine Trace (Negative); Mucus,Urine Many /hpf; Nitrite,Urine Negative (Negative); PH, Urine 5.5 (5.0-8.0); Protein,Urine Trace (Negative); RBC,Urine 1 /hpf (0-5); Specific Gravity,Urine 1.028 (1.001-1.035); WBC,Urine 4 /hpf (0-5)
[2018-10-23 15:00] LABS: Basophils % (A) 1 %; Eosinophils # (A) 0.2 k/uL (0-0.7); Eosinophils % (A) 2 %; HCT 34.9 % (39.0-53.0); HGB 11.3 gm/dL (13.0-17.5); Hypochromasia Slight; Lymphocytes # (A) 1.1 k/uL (1.0-4.8); Lymphocytes % (A) 14 %; MCH 30.8 pg (25.0-35.0); MCHC 32.2 g/dL (31.0-37.0); MCV 95.4 fL (80.0-100.0); Mean Platelet Volume 7.6; Monocytes # (A) 0.4 k/uL (0-1.0); Monocytes % (A) 5 %; Neutrophils # (A) 6.2 k/uL (1.3-7.7); Neutrophils % (A) 77 %; Platelet Count 230 k/uL (150-450); RBC 3.66 m/uL (4.30-5.90); RDW 14.4 % (11.5-15.5)
[2018-10-23 15:05] LABS: INR 1.1 (<1.2); Partial Thromboplastin Time 28.5 sec (22.0-30.0)
[2018-10-23 15:12] LABS: Amphetamine Screen,Urine Not Detected (NotDetected); Barbiturate Screen,Urine Not Detected (NotDetected); Benzodiazepines Screen,Urine Not Detected (NotDetected); Cocaine Screen,Urine Not Detected (NotDetected); Methadone Screen, Urine Not Detected (NotDetected); Opiate Screen,Urine Not Detected (NotDetected); Oxycodone Screen, Urine Not Detected (NotDetected); Phencyclidine Screen,Urine Not Detected (NotDetected); Tricyclic Antidepressant,Urine Not Detected (NotDetected); Urn Cannabinoid Scrn Not Detected (NotDetected)
[2018-10-23 15:14] LABS: Anion Gap 8 mmol/L; Blood Urea Nitrogen 22 mg/dL (9-20); Calcium 9.2 mg/dL (8.4-10.2); Carbon Dioxide 29 mmol/L (22-30); Chloride 104 mmol/L (98-107); Glucose 153 mg/dL (74-99); Potassium 4.5 mmol/L (3.5-5.1); Sodium 141 mmol/L (137-145)
[2018-10-23 16:13] VITALS: RESP 16; TEMP 97.9
[2018-10-23] MEDS ORDERED: ALPRAZolam 0.25 MG TAB PO STA (18:08)
[2018-10-23 18:31] VITALS: BP 110/70; PULSE 76
== END 2018-10-23 18:30 | disposition home or self-care (01) ==
LOC: EC 12:28
DX: R45.1 Restlessness and agitation (principal); F03.90 Unspecified dementia, unspecified severity, without behavioral disturbance, psychotic disturbance, mood disturbance, and anxiety; E11.9 Type 2 diabetes mellitus without complications; E78.5 Hyperlipidemia, unspecified; Z86.14 Personal history of Methicillin resistant Staphylococcus aureus infection; Z87.891 Personal history of nicotine dependence; Z79.01 Long term (current) use of anticoagulants; Z79.84 Long term (current) use of oral hypoglycemic drugs; Z79.899 Other long term (current) drug therapy
CPT/HCPCS: 36415; 80048; 80306; 81001; 82075; 85025; 85610; 85730; 99285

== ENCOUNTER 2018-10-26 06:27 | Emergency (ER) | payer OTHER ==
[2018-10-26 06:34] VITALS: TEMP 97.7
[2018-10-26 06:57] LABS: Basophils % (A) 1 %; Eosinophils # (A) 0.3 k/uL (0-0.7); Eosinophils % (A) 4 %; HCT 37.2 % (39.0-53.0); HGB 11.7 gm/dL (13.0-17.5); Hypochromasia Slight; Lymphocytes # (A) 0.8 k/uL (1.0-4.8); Lymphocytes % (A) 11 %; MCH 30.2 pg (25.0-35.0); MCHC 31.4 g/dL (31.0-37.0); MCV 96.4 fL (80.0-100.0); Mean Platelet Volume 8.2; Monocytes # (A) 0.3 k/uL (0-1.0); Monocytes % (A) 5 %; Neutrophils # (A) 5.8 k/uL (1.3-7.7); Neutrophils % (A) 79 %; Platelet Count 231 k/uL (150-450); RBC 3.85 m/uL (4.30-5.90); RDW 14.5 % (11.5-15.5); WBC 7.3 k/uL (3.8-10.6)
[2018-10-26 07:07] LABS: ALT 23 U/L (21-72); AST 17 U/L (17-59); Acetaminophen <10.0 ug/mL; Albumin 3.8 g/dL (3.5-5.0); Alcohol <10 mg/dL; Alkaline Phosphatase 62 U/L (38-126); Anion Gap 10 mmol/L; Blood Urea Nitrogen 25 mg/dL (9-20); Calcium 9.3 mg/dL (8.4-10.2); Carbon Dioxide 29 mmol/L (22-30); Chloride 104 mmol/L (98-107); Glucose 172 mg/dL (74-99); Potassium 4.2 mmol/L (3.5-5.1); Salicylate <1.0 mg/dL; Sodium 143 mmol/L (137-145); Total Bilirubin 0.4 mg/dL (0.2-1.3); Total Protein 6.5 g/dL (6.3-8.2)
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
--- NOTE | 2018-10-26 07:38 | CT ---
EXAMINATION TYPE: CT brain wo con DATE OF EXAM: 10/26/2018 HISTORY: Altered mental status. History of dementia and CVA/TIA. CT DLP: 1099.4 mGycm. Automated Exposure Control for Dose Reduction was Utilized. TECHNIQUE: CT scan of the head is performed without contrast. COMPARISON: CT brain January 14, 2017. FINDINGS: There is no acute intracranial hemorrhage or midline shift identified. There is diffuse v entricular and sulcal prominence consistent with diffuse age-related cerebral atrophy. There is low- attenuation in the periventricular white matter consistent with chronic small vessel ischemic change. The globes are intact and the visualized sinuses are clear. IMPRESSION: No acute intracranial hemorrhage or midline shift. There is moderate diffuse age-relate d cerebral atrophy and mild chronic small vessel ischemic change redemonstrated. No significant bolden e from prior CT.
[2018-10-26 09:55] LABS: Appearance,Urine Clear (Clear); Bilirubin,Urine Negative (Negative); Blood,Urine Negative (Negative); Color,Urine Yellow; Glucose,Urine (UA) Trace (Negative); Ketones,Urine Negative (Negative); Leukocyte Esterase,Urine Negative (Negative); Nitrite,Urine Negative (Negative); PH, Urine 5.5 (5.0-8.0); Protein,Urine Negative (Negative); Specific Gravity,Urine 1.022 (1.001-1.035); Urobilinogen,Urine <2.0 mg/dL (<2.0)
[2018-10-26 10:05] LABS: Cocaine Screen,Urine Not Detected (NotDetected); Opiate Screen,Urine Not Detected (NotDetected); Phencyclidine Screen,Urine Not Detected (NotDetected); Urn Cannabinoid Scrn Not Detected (NotDetected)
[2018-10-26 10:06] LABS: Amphetamine Screen,Urine Not Detected (NotDetected); Barbiturate Screen,Urine Not Detected (NotDetected); Benzodiazepines Screen,Urine Detected (NotDetected); Methadone Screen, Urine Not Detected (NotDetected); Oxycodone Screen, Urine Not Detected (NotDetected); Tricyclic Antidepressant,Urine Not Detected (NotDetected)
[2018-10-26 13:13] VITALS: BP 122/71; PULSE 65; RESP 16
[2018-10-26] MEDS ORDERED: WARFARIN 7.5 MG TAB PO SCH (13:30)
[2018-10-26] MEDS ORDERED: WARFARIN 5 MG TAB PO SCH (13:30)
[2018-10-26 14:53] LABS: INR 1.1 (<1.2); Prothrombin Time 11.5 sec (9.0-12.0)
[2018-10-26] MEDS ORDERED: metFORMIN 500 MG TAB PO SCH (17:30)
[2018-10-26] MEDS ORDERED: WARFARIN 5 MG TAB PO ONE (17:30)
[2018-10-27] MEDS ORDERED: ATORVASTATIN 20 MG TAB PO SCH (09:00)
== END 2018-10-26 18:13 ==
LOC: EC 06:27
DX: R45.851 Suicidal ideations (principal); R41.82 Altered mental status, unspecified; E11.9 Type 2 diabetes mellitus without complications; E78.5 Hyperlipidemia, unspecified; Z86.73 Personal history of transient ischemic attack (TIA), and cerebral infarction without residual deficits; Z87.891 Personal history of nicotine dependence; Z53.8 Procedure and treatment not carried out for other reasons; Z79.01 Long term (current) use of anticoagulants; Z79.84 Long term (current) use of oral hypoglycemic drugs; Z79.899 Other long term (current) drug therapy
CPT/HCPCS: 36415; 51798; 70450; 80053; 80306; 80320; 81003; 83520; 85025; 85610; 99285